=== PATIENT | female | born 1960 | race Caucasian/White ===

== ENCOUNTER → 2018-03-19 | Outpatient (CLI) | payer BC | LOC: FIMAGING 13:36 | PROVIDERS: ATTEND Family Medicine | DX: Z12.31 Encounter for screening mammogram for malignant neoplasm of breast (principal); Z13.820 Encounter for screening for osteoporosis; M85.89 Other specified disorders of bone density and structure, multiple sites; Z78.0 Asymptomatic menopausal state ==

== ENCOUNTER 2018-06-18 20:04 | Emergency (ER) | payer BC ==
[2018-06-18] MEDS ORDERED: NS 500 ML IV ONE (20:10)
[2018-06-18 20:17] LABS: PLATELET COUNT 188 10^3/uL (150-400)
--- NOTE | 2018-06-18 20:36 | EDPHY ---
H & P Time Seen by Provider: 06/18/18 20:09 HPI/ROS: HPI Lightheaded, fainted. 57-year-old female by private vehicle with her . This patient reports that she was at her book club at 5:00 p.m.. She reports she had a glass of wine there. She then met her at a [employer]. She was standing. She had another half glass of wine. She states that she started feeling lightheaded and having some nausea. She then was walking back to the bathroom when she suddenly lost consciousness and fell backwards. She did hit the back of her head according to her when she fell backwards. She is not on any antiplatelet or anticoagulant medications. She denies any associated signs or symptoms. No chest pain, no palpitations, no headache, no shortness of breath. She denies any neck pain or extremity pain. She is feeling better now and has no complaints currently. ROS: Constitutional: No fever, no chills. As above. Eyes: No discharge. No changes in vision. ENT: No sore throat. No nasal congestion or rhinorrhea. Respiratory: No cough. No shortness of breath. Cardiac: No chest pain, no palpitations. Gastrointestinal: No abdominal pain, no vomiting, no diarrhea. Genitourinary: No hematuria. No dysuria or increased frequency with urination. Musculoskeletal: No back pain. No neck pain. No myalgias or arthralgias. Skin: No rashes. Neurological: No headache. No focal weakness or altered sensation. Past medical history: Hypothyroid. Hypertension. She denies any new medications. Panic attacks. She does not take any prescription medications. Social history: Nonsmoker. Drinks alcohol socially. States that she has a light weight with alcohol. Here with her . Physical Exam: General Appearance: Alert, no distress. She is then and small in stature. This patient is responding to questions appropriately and in full sentences. This patient appears well-hydrated and well-nourished. Head: Normocephalic atraumatic. Eyes: Pupils equal and round no pallor or injection. No lid edema, erythema or injection. ENT, Mouth: Mucous membranes are moist. The pharyngeal tissues are unremarkable. No edema or swelling. No asymmetry suggestive of abscess. No erythema or exudates. No tongue lacerations or abrasions. Respiratory: There are no retractions, lungs are clear to auscultation with good air movement bilaterally. Cardiovascular: Regular rate and rhythm. No murmur. Gastrointestinal: Abdomen is soft and nontender, no masses, bowel sounds normal. No focal tenderness at McBurney's point. No Escudero sign. Neurological: Motor sensory function is grossly intact. Cranial nerves are normal. Gait is normal. Skin: Warm and dry, no rashes. Musculoskeletal: Neck is supple and nontender. No midline, cervical, thoracic , lumbar tenderness on palpation. No CVA tenderness on palpation. Extremities are symmetrical. All joints range without pain or impingement. Psychiatric: No agitation. No depression. Database: EKG: EKG time is 8:14 p.m.; EKG shows a narrow complex normal sinus rhythm with a ventricular rate of 54. The IL, QRS, QT intervals are within normal limits. There are no ST-T wave changes indicative of ischemic or injury pattern. No evidence of right heart strain. No evidence of Brugada syndrome, WPW, hypertrophic cardiomyopathy. Interpreted by me. Imaging: Procedures: Emergency department course: Triage vital signs reviewed. She is mildly bradycardic. Triage vital signs are otherwise unremarkable. She is afebrile. IV was placed. She was started on IV normal saline with 500 cc to be given over the next hour. EKG obtained and reviewed by myself. Appropriate blood work ordered. 8:40 p.m., the patient was re-evaluated, repeat neurologic Assessment is nonfocal. patient monitor shows a narrow complex sinus bradycardia ventricular rate of 55. She has had 500 cc of IV normal saline. She has no complaints at this time. She has been up and ambulatory around the emergency department without issue. She feels comfortable going home with her . Follow-up and return to emergency department precautions reviewed with her. She was discharged from the emergency department in good condition with her who is driving. Differential Diagnosis: The differential diagnosis on this patient includes but is not limited to dehydration, vasovagal syncope, affects of alcohol, hypoglycemia. Subarachnoid hemorrhage, anemia, pulmonary embolism, cardiac arrhythmia or other cardiac etiology of syncope unlikely. This represents a partial list of diagnoses considered. These considerations are based on history, physical exam, past history, reassessment and diagnostic testing. Smoking Status: Never smoked Constitutional: Initial Vital Signs Temperature (C) 36.4 C 06/18/18 20:13 Heart Rate 55 L 06/18/18 20:13 Respiratory Rate 18 06/18/18 20:13 Blood Pressure 137/87 H 06/18/18 20:13 O2 Sat (%) 98 06/18/18 20:13 O2 Delivery Mode Room Air Allergies/Adverse Reactions: No Known Allergies Allergy (Unverified 06/18/18 20:13) Home Medications: Medication Instructions Recorded PREMARIN 06/18/18 Propranolol HCl 06/18/18 Medical Decision Making - Data Points Laboratory Results: Laboratory Results 06/18/18 20:08 06/18/18 20:08 06/18/18 06/18/18 06/18/18 20:12 20:08 20:08 WBC 5.18 10^3/uL 10^3/uL (3.80-9.50) RBC 4.33 10^6/uL 10^6/uL (4.18-5.33) Hgb 14.3 g/dL g/dL (12.6-16.3) Hct 42.2 % % (38.0-47.0) MCV 97.5 fL fL (81.5-99.8) MCH 33.0 pg pg (27.9-34.1) MCHC 33.9 g/dL g/dL (32.4-36.7) RDW 12.2 % % (11.5-15.2) Plt Count 188 10^3/uL 10^3/uL (150-400) MPV 12.8 fL H fL (8.7-11.7) Neut % (Auto) 44.9 % % (39.3-74.2) Lymph % (Auto) 42.9 % % (15.0-45.0) Cass % (Auto) 8.7 % % (4.5-13.0) Eos % (Auto) 2.1 % % (0.6-7.6) Baso % (Auto) 1.2 % % (0.3-1.7) Nucleat RBC Rel Count 0.0 % % (0.0-0.2) Absolute Neuts (auto) 2.33 10^3/uL 10^3/uL (1.70-6.50) Absolute Lymphs (auto) 2.22 10^3/uL 10^3/uL (1.00-3.00) Absolute Monos (auto) 0.45 10^3/uL 10^3/uL (0.30-0.80) Absolute Eos (auto) 0.11 10^3/uL 10^3/uL (0.03-0.40) Absolute Basos (auto) 0.06 10^3/uL 10^3/uL (0.02-0.10) Absolute Nucleated RBC 0.00 10^3/uL 10^3/uL (0-0.01) Immature Gran % 0.2 % % (0.0-1.1) Immature Gran # 0.01 10^3/uL 10^3/uL (0.00-0.10) Sodium 137 mEq/L mEq/L (135-145) Potassium 4.0 mEq/L mEq/L (3.5-5.2) Chloride 104 mEq/L mEq/L (97-110) Carbon Dioxide 27 mEq/l mEq/l (22-31) Anion Gap 6 mEq/L mEq/L (6-14) BUN 16 mg/dL mg/dL (7-23) Creatinine 1.0 mg/dL mg/dL (0.6-1.0) Estimated GFR 57 Glucose 84 mg/dL mg/dL (70-100) Calcium 9.4 mg/dL mg/dL (8.5-10.4) POC Troponin I 0.00 ng/mL ng/mL (0.00-0.08) Medications Given: Discontinued Medications Sodium Chloride (Ns) 500 mls @ 1,000 mls/hr IV EDNOW ONE PRN Reason: Protocol Stop: 06/18/18 20:39 Last Admin: 06/18/18 20:20 Dose: 500 mls Point of Care Test Results: Chemistry 06/18/18 20:12 POC Troponin I 0.00 ng/mL ng/mL (0.00-0.08) Departure - Departure Disposition: Home, Routine, Self-Care Clinical Impression: Syncope Condition: Good Instructions: Syncope (ED) Additional Instructions: Read and follow provided instructions. Follow-up with your primary care physician in 1-2 days for re-evaluation. Keep yourself well hydrated by drinking plenty of fluids. Eat regularly spaced meals 3 times daily. Return to the emergency department for worsening symptoms, lightheadedness, fainting, chest pain, shortness of breath, headache, heart palpitations or other serious concerns. Referrals: Patient,NotPresent [Primary Care Provider] - As per Instructions
[2018-06-18 20:54] VITALS: BP 124/79
--- NOTE | 2018-06-18 23:00 | CPEKG ---
Test Reason : OPEN Blood Pressure : / mmHG Vent. Rate : 054 BPM Atrial Rate : 054 BPM P-R Int : 154 ms QRS Dur : 089 ms QT Int : 417 ms P-R-T Axes : 045 054 031 degrees QTc Int : 396 ms Sinus rhythm Confirmed by Michael Villagran ([id number] on 06/18/2018 11:00:03 PM Referred By: Confirmed By:Michael Villagran
== END 2018-06-18 20:53 | disposition home or self-care (01) ==
LOC: EDUNIT#
DX: R55 Syncope and collapse (principal); I10 Essential (primary) hypertension; E03.9 Hypothyroidism, unspecified
CPT/HCPCS: 84484-PO